=== PATIENT | female | born 1940 | race Caucasian/White ===

== ENCOUNTER 2021-11-03 08:00 | Day surgery (SDC) | payer MEDICARE ==
[2021-11-02 10:36] VITALS: BMI 26.5
[~2021-11-03 08:00] MED LIST: TETRACAINE 0.5% OPHTH (PF) DROPS 4 ML BTL OP PRN
[2021-11-03] MEDS: CYCLOPENTOLATE 1% OPHTH SOLN 2 ML BTL OP PRN ×3 (08:25→08:45)
[2021-11-03] MEDS: PHENYLEPHRINE 2.5% OPHTH DRP 2ML OP PRN ×3 (08:30→08:50)
[2021-11-03] MEDS ORDERED: LACTATED RINGERS 1,000 ML IV SCH (08:35)
[2021-11-03 08:43] VITALS: TEMP 98.1
[2021-11-03] MEDS ORDERED: LIDOCAINE 1% (10MG/ML) FOR IV START INTRADERMA ONE (08:51)
[2021-11-03] MEDS ORDERED: MIDAZOLAM 2 MG/2 ML VIAL ONE (09:44)
[2021-11-03] MEDS ORDERED: fentaNYL (PF) 50 MCG/ML 2 ML AMP ONE (09:44)
[2021-11-03] MEDS ORDERED: BALANCED SALT IRRIG SOLN COMB2 15 ML IRRIG.SOLN INTRAOCULA ONE ×2 (09:45→10:00)
[2021-11-03] MEDS ORDERED: DUOVISC KIT (GREEN BOX) INTRAOCULA ONE ×2 (09:46→10:00)
[2021-11-03] MEDS ORDERED: LIDOCAINE 1% (PF) 10MG/ML VIAL MISCELLANE ONE ×2 (09:46→10:00)
[2021-11-03] MEDS: MOXIFLOXACIN HCL 0.5% DROPS 3 ML BTL OP PRN ×2 (09:46→10:09)
[2021-11-03] MEDS: TIMOLOL 0.5% OPHTH DROPS 5 ML BTL OP PRN ×2 (09:52→10:09)
[2021-11-03] MEDS ORDERED: EPINEPHrine (PF) 0.3 ML in BALANCED SALT IRRIG SOLN COMB2 500 ML IRRIGATION ONE ×4 (09:57)
--- NOTE | 2021-11-03 10:12 | P.OP ---
Date of Procedure: 11/03/21 Preoperative Diagnosis: NS Postoperative Diagnosis: same Procedure(s) Performed: PIOL, OD Implants: [id number] 23.50 Anesthesia: MAC (adrián) Surgeon: Dimitri Go Pathology: none sent Condition: stable Disposition: same day Indications for Procedure: blurry vision Operative Findings: no complications
[2021-11-03 10:46] VITALS: BP 158/72; PULSE 69; RESP 16
--- NOTE | 2021-11-03 15:20 | OP ---
OPERATIVE REPORT DATE OF SURGERY: November 03, 2021. PROCEDURES: Phacoemulsification of cataract and intraocular lens implant of the right eye. PREOPERATIVE DIAGNOSIS: Nuclear sclerosis. POSTOPERATIVE DIAGNOSIS: Nuclear sclerosis. OPERATION: Clear cornea phacoemulsification of cataract right OD eye. ESTIMATED BLOOD LOSS: Zero. SPECIMEN TAKEN: None. NARRATIVE: After obtaining the appropriate consent, the patient was brought to the Operating Room where the patient was placed under cardiac monitoring and prepped and draped in the usual sterile manner. At the 11 o'clock position a 15 degree super sharp blade was used to create a paracentesis followed by instillation of 1% Xylocaine MPF 50:50 mix with BSS into the anterior chamber. This was followed by Amvisc to stabilize the anterior chamber. At the 9 o'clock position a self-sealing corneal flap incision was created using 2.8 mm hung keratome. A cystotome was used to initiate a continuous tear capsulorrhexis which was completed with the Utrata forceps. A Binkhorst cannula was used to hydrodissect the lens nucleus followed by hydrodelineation. Phacoemulsification of the lens was performed utilizing phacochop in 17.16 seconds at 17% power. The remaining cortical material was removed using the irrigation aspiration mode followed by additional 1% Xylocaine MPF into the anterior chamber followed by viscoelastic to stabilize the capsular bag. A [employer]ch [employer] MX 60E 23.5 diopter posterior chamber lens was placed into the capsular bag without difficulty. The remaining viscoelastic material was removed from the anterior chamber with the irrigation/aspiration. Balanced salt solution was used to normalize the intraocular pressure. The incision was checked for watertight integrity. The patient then received two drops of 0.5% timolol followed by two drops Vigamox, was lightly patched and shielded in the usual manner. There were no complications from the procedure. The patient tolerated the procedure well and was returned to recovery in good condition. MMODL / IJN: [id number] /
== END 2021-11-03 11:08 | disposition home or self-care (01) ==
LOC: OR 08:00
PROVIDERS: ATTEND Ophthalmology
DX: H25.11 Age-related nuclear cataract, right eye (principal); H35.3132 Nonexudative age-related macular degeneration, bilateral, intermediate dry stage; H04.129 Dry eye syndrome of unspecified lacrimal gland; H18.519 Endothelial corneal dystrophy, unspecified eye; H00.026 Hordeolum internum left eye, unspecified eyelid; H00.023 Hordeolum internum right eye, unspecified eyelid; H52.223 Regular astigmatism, bilateral; H52.03 Hypermetropia, bilateral; H52.4 Presbyopia; E03.9 Hypothyroidism, unspecified; I10 Essential (primary) hypertension; J34.9 Unspecified disorder of nose and nasal sinuses; M19.90 Unspecified osteoarthritis, unspecified site; M54.9 Dorsalgia, unspecified; J30.2 Other seasonal allergic rhinitis; Z98.890 Other specified postprocedural states; Z79.899 Other long term (current) drug therapy; Z79.890 Hormone replacement therapy; Z83.518 Family history of other specified eye disorder; Z82.61 Family history of arthritis; Z83.3 Family history of diabetes mellitus; Z82.49 Family history of ischemic heart disease and other diseases of the circulatory system; Z84.1 Family history of disorders of kidney and ureter
CPT/HCPCS: 66984; C1780; J2250; J0171; J3010; J2001

== ENCOUNTER 2022-05-25 09:14 | Day surgery (SDC) | payer MEDICARE ==
[2022-05-23 10:11] VITALS: BMI 28.3
[~2022-05-25 09:14] MED LIST changes: +ATROPINE OPHTH SOLN 1% 5ML BTL OPHTHALMIC PRN; +LACTATED RINGERS 1,000 ML IV SCH; +MOXIFLOXACIN HCL 0.5% DROPS 3 ML BTL OP PRN; -TETRACAINE 0.5% OPHTH (PF) DROPS 4 ML BTL OP PRN; +TIMOLOL 0.5% OPHTH DROPS 5 ML BTL OP PRN
[2022-05-25 10:06] VITALS: RESP 16
[2022-05-25 10:12] VITALS: TEMP 97.3
[2022-05-25] MEDS: PILOCARPINE 2% OPHTH DROPS 15 ML BTL OP PRN ×3 (10:13→10:24)
[2022-05-25] MEDS ORDERED: fentaNYL (PF) 50 MCG/ML 2 ML AMP ONE (10:58)
[2022-05-25] MEDS ORDERED: MIDAZOLAM 2 MG/2 ML VIAL ONE (10:58)
[2022-05-25] MEDS ORDERED: ACETYLCHOLINE CHLORIDE 10 MG/ML 2 ML KIT INTRAOCULA ONE ×2 (11:29)
[2022-05-25] MEDS ORDERED: BALANCED SALT IRRIG SOLN COMB2 15 ML IRRIG.SOLN INTRAOCULA ONE (11:31)
[2022-05-25] MEDS ORDERED: HYALURONATE SODIUM INTRAOCULAR 1 EACH SYRINGE (12MG/ML) INTRAOCULA ONE (11:33)
[2022-05-25] MEDS ORDERED: EPINEPHrine (PF) 0.3 ML in BALANCED SALT IRRIG SOLN COMB2 500 ML IRRIGATION ONE (11:34)
[2022-05-25] MEDS ORDERED: BALANCED SALT IRRIG SOLN COMB2 500 ML IRRIGATION ONE (11:34)
[2022-05-25] MEDS ORDERED: TRYPAN BLUE 0.06% SYRINGE 0.5 ML SYRINGE INTRAOCULA ONE ×2 (11:47)
[2022-05-25] MEDS ORDERED: ATROPINE OPHTH SOLN 1% 2 ML BTL LEFT EYE ONE (12:54)
--- NOTE | 2022-05-25 13:03 | P.OP ---
Date of Procedure: 05/25/22 Preoperative Diagnosis: NS & Fuch's Dystrophy Postoperative Diagnosis: same Procedure(s) Performed: PIOL, & DMEK, OS Implants: MX60e 23.00 Anesthesia: MAC Surgeon: Dimitri Go Pathology: none sent Condition: stable Disposition: same day Indications for Procedure: blurry vision and corneal failure Operative Findings: No complications
--- NOTE | 2022-05-25 13:39 | P.OP ---
Date of Procedure: 05/25/22 Preoperative Diagnosis: NS & cS & PSC Postoperative Diagnosis: same Procedure(s) Performed: PIOL, OS Implants: [id number] 17.00 Anesthesia: MAC Surgeon: Dimitri Go Pathology: none sent Condition: stable Disposition: same day Indications for Procedure: blurry vision Operative Findings: no complications
[2022-05-25 14:22] VITALS: BP 137/71; PULSE 77
--- NOTE | 2022-05-26 01:29 | OP ---
OPERATIVE REPORT PROCEDURE PERFORMED: Phacoemulsification of cataract and intraocular lens implant of the left eye with Descemet membrane and endothelial keratoplasty of the left eye. PREOPERATIVE DIAGNOSES: 1. Nuclear sclerosis. 2. Fuchs endothelial corneal dystrophy. POSTOPERATIVE DIAGNOSES: 1. Nuclear sclerosis. 2. Fuchs endothelial corneal dystrophy. ANESTHESIA: Topical. ESTIMATED BLOOD LOSS: None. SPECIMEN TAKEN: None. DESCRIPTION OF PROCEDURE: After signing the appropriate consent, the patient was brought to the operating room. There, she was placed under cardiac monitoring, prepped and draped in the usual sterile manner. She was approached from her left temporal side, and following identification of the pupil, initially being approximately 2 mm in diameter on presentation to the operating room, 2 drops of 1% cyclopentolate were placed on the patient's eye to initiate mydriasis. At the time of being seated next to the patient, the pupil was approximately 3-1/2 to 4 mm in size. At the 5 o'clock position, an MVR blade was used to create a paracentesis port. Through this opening, 1% Xylocaine MPF 50:50 mix with balanced salt solution was injected into the anterior chamber. This was followed by injection of epinephrine MPF 1:1000 50:50 mix with balanced salt solution and this too was injected with careful direction at the dilated muscles of the iris. Allowing a few moments, this was followed by stabilization of the anterior chamber with Amvisc. At this point, the pupillary dilation was approximately 5.5 mm in diameter. At the 3 o'clock position, a 2.5-mm keratome was used to create a self-sealing corneal flap incision. Through this opening, a cystotome was introduced to begin a continuous tear capsulorrhexis, which was then completed using the Utrata forceps. Hydrodissection and hydrodelineation of the lens were accomplished with balanced salt solution. Phacoemulsification of lens utilizing phaco chop was accomplished in 19.74 seconds at 13% power. Additional Xylocaine MPF was then used to ensure proper anesthesia, and removal of the remaining cortical material under irrigation/aspiration was accomplished as well as careful polishing of the posterior capsule in the capsule vacuum mode. Amvisc was then used to stabilize the capsular bag and a B[employer]ch [employer] Lomb MX60E 23.5 diopter posterior chamber intraocular lens was then inserted into the capsular bag without difficulty. The lens was rotated slightly to ensure proper placement of the equatorial haptics and irrigation/aspiration of the anterior chamber as well as in and around the intraocular lens was accomplished. At this point, additional Xylocaine MPF was instilled into the anterior chamber. This was followed by instillation of Miochol, which was used to bring about pupillary miosis. Once the medication had approximately 1 minute duration in the eye, Trypan blue was then instilled into the patient's eye and was allowed to dwell for approximately 4 minutes. During this period of time, the back table was prepared for the donor tissue. Preloaded tissue identified as [id number]. The transport media as well as a small piece of tissue in the transport vial was sent to the lab for culture and sensitivity identification. On the table, the donor tissue was then attached to a 3 mL syringe, filled with balanced salt solution, and the tissue was then confirmed mobile within its Gardner tube transport device. Additionally, 20% SF6 was made diluting 100% SF6 with room air through a filter and this was placed on the side for use when the donor tissue was placed. The Trypan blue was then irrigated from the anterior chamber removing all including that, which had apparently gone posterior to the iris during this stage of the procedure. Additional Amvisc was placed in the anterior chamber and an 8-mm [place] trephined was carefully placed on the patient's cornea through the central visual axis. Slight imprint was made into the epithelium of the cornea and this was then marked with gentian eleazar. Three additional paracenteses were performed at the 10 o'clock, 4 o'clock, and 8 o'clock positions. Under the protection of the Amvisc, a Ceferino-Samir hook was then used to break the attachment of the endothelium to the stroma of the patient's own cornea and the endothelium was carefully removed with a Descemet membrane stripping instrument. The tissue was placed to the side and examined, and it appeared that 100% of the desired area in the central cornea had been adequately stripped of endothelium. Irrigation/aspiration was once again accomplished on the patient's anterior chamber with care to ensure that all remaining viscoelastic was removed from the anterior chamber. This was followed by instillation of balanced salt solution leaving the chamber only partially inflated in anticipation of the donor tissue. The previously prepared endothelium was transported from the back table to the patient's side and the tip of the Gardner tube was placed in the opening of the temporal incision. Careful injection of the donor tissue placed the scroll of endothelium on the patient's iris. The Gardner tube was carefully withdrawn ensuring that the donor tissue remained within the confines of the anterior chamber. At this point, a single 10-0 nylon suture was placed over the temporal incision to create watertight and airtight integrity. Carefully adjusting the amount of fluid in the anterior chamber, the donor tissue was unscrolled with the stroma side previously marked with a marker, placed in the proper upright position. Once the tissue appeared to be completely unscrolled and centrally placed on the patient's cornea, small air bubble was used to secure the donor tissue against the patient's stromal bed. At this stage, then 20% SF6 gas on a 30-gauge needle was instilled into the anterior chamber, increasing the intraocular pressure to just below loss of light perception per the patient. This increased intra-ocular pressure with the SF6 gas bubble was left in place for approximately 20 minutes. At the end of this period of time, careful displacement of the gas, a large portion of the gas bubble was accomplished using balanced salt solution from one of the paracentesis ports leaving approximately 40% gas in the anterior chamber. Intraocular pressure by palpation was returned to normal and the patient then received 2 drops of 0.5% timolol, followed by 2 drops of 0.5% moxifloxacin and 2 drops of 1% atropine. The eye was then carefully protected with a shield only. The patient was asked to remain supine and she was asked to begin her recovery in the phase 2 area of postop. There, she remained for approximately an additional hour with a liberty to get up and relieve herself as necessary. At the end of this 1 hour period of time, the patient was asked to sit upright and a slit-lamp was used to examine the patient's eye. The donor cornea was noted to be pressed against the patient's own stromal bed and the air bubble was no more than 40% of the total volume of the anterior chamber in the patient's eye. At this stage, the eye was re-shielded and the patient was discharged to home. There were no complications from the procedure. She tolerated the procedure well and was discharged to home in good condition. MMODL / IJN: [id number] /
== END 2022-05-25 14:45 | disposition home or self-care (01) ==
LOC: OR 09:14
PROVIDERS: ATTEND Ophthalmology
DX: H25.12 Age-related nuclear cataract, left eye (principal); H18.519 Endothelial corneal dystrophy, unspecified eye; H35.3132 Nonexudative age-related macular degeneration, bilateral, intermediate dry stage; H04.129 Dry eye syndrome of unspecified lacrimal gland; H00.023 Hordeolum internum right eye, unspecified eyelid; H00.026 Hordeolum internum left eye, unspecified eyelid; H52.223 Regular astigmatism, bilateral; H52.03 Hypermetropia, bilateral; H52.4 Presbyopia; Z96.1 Presence of intraocular lens; Z98.41 Cataract extraction status, right eye; Z98.890 Other specified postprocedural states; I10 Essential (primary) hypertension; M54.9 Dorsalgia, unspecified; E03.9 Hypothyroidism, unspecified; J30.2 Other seasonal allergic rhinitis; Z88.1 Allergy status to other antibiotic agents
CPT/HCPCS: 87070; 87205; 87075; 66984; 65756; V2785; C1780; J2250; J0171 ×2; J3010